=== PATIENT | male | born 1980 | race Two or more races ===

== ENCOUNTER 2021-06-08 15:00 | Emergency (ER) | payer BC, OTHER ==
[~2021-06-08] VITALS: Ht 170.2 cm; Wt 161.0 kg
--- NOTE | 2021-06-08 15:00 | NUR ---
LELE C/O HEAD INJURY S/P HITTING HEAD ON CONTROL PANEL OF [employer]UCK DENIES PAIN, STATED HE DID NOT LOSE LEVEL OF CONSCIOUSNESS. PT BREATHING IS EVEN AND UNLABORED, NO SOB NOTED. JACQUES GALICIA AT BEDSIDE.
[2021-06-08] MEDS ORDERED: LIDOCAINE 1%-EPI 1:100,000 20 ML VIAL TP ONE (15:30)
--- NOTE | 2021-06-08 15:40 | NUR ---
SARAH HANNA AT PT'S BEDSIDE DOING WOUND CARE TO PT'S HEAD
--- NOTE | 2021-06-08 15:56 | NUR ---
Patient discharged to home in stable condition. Written and verbal after care instructions given. Patient verbalizes understanding of instruction. PT ambulatory with a steady gait
[2021-06-08 15:57] VITALS: BP 130/69
== END 2021-06-08 15:57 | disposition home or self-care (01) ==
LOC: ER 15:03
DX: S01.01XA Laceration without foreign body of scalp, initial encounter (principal); W22.8XXA Striking against or struck by other objects, initial encounter; Y93.89 Activity, other specified; Y92.89 Other specified places as the place of occurrence of the external cause; Y99.8 Other external cause status